=== PATIENT | female | born 1985 | race Caucasian/White ===

== ENCOUNTER 2018-07-13 14:20 | Observation (INO) | payer OTHER ==
[~2018-07-13] VITALS: Ht 160 cm; Wt 78.5 kg
[2018-07-13] MEDS ORDERED: PREN1TAB80 PO (14:49)
[2018-07-13 15:08] VITALS: BP 124/80
== END 2018-07-13 16:50 | disposition home or self-care (01) ==
LOC: 4S 14:20
PROVIDERS: ADMIT Obstetrics & Gynecology; ATTEND Obstetrics & Gynecology
DX: Z34.03 Encounter for supervision of normal first pregnancy, third trimester (principal); Z3A.39 39 weeks gestation of pregnancy
CPT/HCPCS: 59025; 76805; G0378

== ENCOUNTER 2018-07-22 08:10 | Inpatient (IN) | payer OTHER ==
[~2018-07-22] VITALS: Ht 162 cm; Wt 78.2 kg
[~2018-07-22 08:10] MED LIST: PREN1TAB80 PO
[2018-07-22] MEDS ORDERED: RINGERS SOLUTION,LACTATED 1,000 ML IV PRN (08:18)
[2018-07-22] MEDS ORDERED: OXYTOCIN 30 UNITS/LACT RINGERS 500 ML IV ONE (08:18)
[2018-07-22] MEDS ORDERED: LIDOCAINE/PF 1% 30 ML VIAL INJ PRN (08:30)
[2018-07-22] MEDS ORDERED: METOCLOPRAMIDE HCL 5 MG/ML 2 ML VIAL IVP PRN (08:30)
[2018-07-22] MEDS ORDERED: CITRIC ACID/SODIUM CITRATE 30 ML SOLUTION UDCUP PO PRN (08:30)
[2018-07-22 08:51] LABS: BASOPHILS % (AUTO) 0.9 % (0.0-2.0); EOSINOPHILS % (AUTO) 1.5 % (1.0-6.0); HEMATOCRIT 35.1 % (36-46); HEMOGLOBIN 11.9 g/dL (12.0-16.0); LYMPHOCYTES # (AUTO) 2.8 K/uL (1.0-4.8); LYMPHOCYTES % (AUTO) 34.7 % (22.0-44.0); MEAN CORPUSCULAR HEMOGLOBIN 27.4 pg (26.0-34.0); MEAN CORPUSCULAR HGB CONC 33.8 G/dL (31.0-37.0); MEAN CORPUSCULAR VOLUME 81 fL (80-100); MONOCYTES # (AUTO) 0.6 K/uL (0.1-1.0); NEUTROPHILS # (AUTO) 4.4 K/uL (1.8-7.7); NEUTROPHILS % (AUTO) 54.9 % (40.0-70.0); PLATELET COUNT (AUTO)-OB 159 K/uL (150-450); RED BLOOD CELL COUNT(AUTO) 4.33 MIL/uL (4.00-5.20); RED CELL DISTRIBUTION WIDTH 14.3 % (11.5-14.5)
[2018-07-22 08:52] VITALS: BP 126/80
[2018-07-22] MEDS: RINGERS SOLUTION,LACTATED 1,000 ML IV SCH ×2 (08:57→15:46)
[2018-07-22] MEDS: MISOPROSTOL 25 MCG TABLET PO SCH ×2 (10:40→15:43)
[2018-07-22 10:50] LABS: PLATELET MORPHOLOGY COMMENT GIANT PLTS PRESENT
[2018-07-22] MEDS ORDERED: DINOPROSTONE 10 MG VAGINAL SUPPOSITORY VG ONE (19:15)
[2018-07-22] MEDS ORDERED: OXYGEN THERAPY IH SCH (20:00)
[2018-07-23] MEDS: RINGERS SOLUTION,LACTATED 1,000 ML IV SCH ×5 (00:04→17:50)
[2018-07-23] MEDS: FentaNYL CITRATE-PF 100 MCG/2 ML VIAL IVP PRN ×2 (03:51→03:57)
[2018-07-23] MEDS ORDERED: METOCLOPRAMIDE HCL 5 MG/ML 2 ML VIAL IV ONE (03:56)
[2018-07-23] MEDS ORDERED: OXYTOCIN 10 UNITS/ML VIAL IM ONE (03:56)
[2018-07-23] MEDS ORDERED: FentaNYL CITRATE-PF 100 MCG/2 ML VIAL IV ONE (04:11)
[2018-07-23] MEDS ORDERED: MORPHINE SULFATE/PF 0.5 MG/ML 10 ML AMP IVP ONE (04:11)
[2018-07-23] MEDS ORDERED: -PHARMACY NOTE- MISC ONE (07:15)
[2018-07-23] MEDS ORDERED: ROPIVACAINE HCL/PF 0.2% 100 ML ED ONE (08:07)
[2018-07-23] MEDS ORDERED: OXYTOCIN 30 UNITS/LACT RINGERS 500 ML IV PRN (09:13)
[2018-07-23] MEDS ORDERED: ROPIVACAINE HCL/PF 0.2% 100 ML ED PRN (09:23)
[2018-07-23] MEDS ORDERED: NALBUPHINE HCL 10 MG/ML VIAL IVP PRN (09:30)
[2018-07-23] MEDS ORDERED: ONDANSETRON HCL 4 MG/2 ML VIAL IVP PRN (09:30)
[2018-07-23] MEDS ORDERED: DiphenhydrAMINE HCL 50 MG/ML VIAL IVP PRN (09:30)
[2018-07-23] MEDS ORDERED: OXYGEN THERAPY IH SCH (13:30)
[2018-07-23] MEDS ORDERED: MEPERIDINE-PF 25 MG/ML VIAL IVP PRN (13:30)
[2018-07-23] MEDS ORDERED: GUM MASTIC/STORAX/MSAL/ALCOHOL LIQUID 0.67 ML VIAL TP ONE ×2 (13:36→13:39)
[2018-07-23] MEDS ORDERED: NALBUPHINE HCL 10 MG/ML VIAL ONE (14:09)
[2018-07-23] MEDS ORDERED: ACETAMINOPHEN 1000 MG/ISO-OSM 100 ML IV ONE (14:09)
[2018-07-23] MEDS: ACETAMINOPHEN 1000 MG/ISO-OSM 100 ML IV SCH ×2 (14:11→22:02)
[2018-07-23] MEDS: NALBUPHINE HCL 10 MG/ML VIAL IVP SCH ×2 (14:12→20:06)
[2018-07-23] MEDS ORDERED: OxyCODONE HCL/ACETAMINOPHEN 5-325 MG TABLET PO PRN ×2 (16:00)
[2018-07-23] MEDS ORDERED: LANOLIN 7 GM OINTMENT TP PRN (16:00)
[2018-07-23] MEDS: MAGNESIUM HYDROXIDE SUSPENSION 30 ML UDCUP PO SCH (22:02)
[2018-07-24] MEDS: NALBUPHINE HCL 10 MG/ML VIAL IVP SCH ×2 (02:09→08:55)
[2018-07-24] MEDS: RINGERS SOLUTION,LACTATED 1,000 ML IV SCH ×2 (02:11→11:29)
[2018-07-24 05:32] LABS: BASOPHILS % (AUTO) 0.5 % (0.0-2.0); EOSINOPHILS % (AUTO) 0.2 % (1.0-6.0); HEMATOCRIT 27.1 % (36-46); HEMOGLOBIN 9.5 g/dL (12.0-16.0); LYMPHOCYTES # (AUTO) 2.2 K/uL (1.0-4.8); LYMPHOCYTES % (AUTO) 24.2 % (22.0-44.0); MEAN CORPUSCULAR HEMOGLOBIN 28.5 pg (26.0-34.0); MEAN CORPUSCULAR HGB CONC 34.9 G/dL (31.0-37.0); MEAN CORPUSCULAR VOLUME 82 fL (80-100); MONOCYTES # (AUTO) 0.8 K/uL (0.1-1.0); MONOCYTES % (AUTO) 8.2 % (2.0-9.0); NEUTROPHILS # (AUTO) 6.1 K/uL (1.8-7.7); NEUTROPHILS % (AUTO) 66.9 % (40.0-70.0); PLATELET COUNT (AUTO)-OB 145 K/uL (150-450); RED BLOOD CELL COUNT(AUTO) 3.32 MIL/uL (4.00-5.20); RED CELL DISTRIBUTION WIDTH 14.4 % (11.5-14.5)
[2018-07-24] MEDS: ACETAMINOPHEN 1000 MG/ISO-OSM 100 ML IV SCH ×2 (05:56→13:40)
[2018-07-24] MEDS: MAGNESIUM HYDROXIDE SUSPENSION 30 ML UDCUP PO SCH ×2 (08:55→21:13)
[2018-07-24] MEDS: IBUPROFEN 800 MG TABLET PO PRN ×2 (12:20→21:05)
[2018-07-25] MEDS: IBUPROFEN 800 MG TABLET PO PRN (15:40)
[2018-07-25] MEDS ORDERED: IBUP-2071 PO (15:48)
[2018-07-25] MEDS ORDERED: FERR-89 PO (15:49)
[2018-07-25] MEDS ORDERED: DSS100 PO (15:49)
[2018-07-25] MEDS ORDERED: PERCT PO (15:50)
== END 2018-07-25 16:25 | disposition home or self-care (01) | DRG 788 ==
LOC: OBSVTOIN 08:10 → 4S 08:10
PROVIDERS: ADMIT Obstetrics & Gynecology; ATTEND Obstetrics & Gynecology
PROC: 10D00Z1 Extraction of Products of Conception, Low, Open Approach (ICD-10-PCS; principal; 2018-07-23)
DX: O77.0 Labor and delivery complicated by meconium in amniotic fluid (principal); O77.9 Labor and delivery complicated by fetal stress, unspecified; Z3A.41 41 weeks gestation of pregnancy; Z37.0 Single live birth
CPT/HCPCS: 86850; 86900; 86901; 87081; J0131; J0690; J2175; J2274; J2300; J2590; J2765; J2795; J3010; J7120